=== PATIENT | female | born 1980 | race Caucasian/White ===

== ENCOUNTER → 2017-07-14 | Outpatient (CLI) | payer BC | END | disposition home or self-care (01) | LOC: C.LAB1850 16:51 | PROVIDERS: ATTEND Nurse Practitioner Family | DX: J02.9 Acute pharyngitis, unspecified (principal); R68.89 Other general symptoms and signs ==

== ENCOUNTER → 2017-08-07 | Outpatient (CLI) | payer BC | END | disposition home or self-care (01) | LOC: C.PAPS 10:09 | PROVIDERS: ATTEND Obstetrics & Gynecology | DX: Z01.419 Encounter for gynecological examination (general) (routine) without abnormal findings (principal) ==

== ENCOUNTER → 2017-11-13 | Outpatient (CLI) | payer BC, OTHER ==
[2017-11-13 16:37] LABS: BASO % 0.5 %; BASO ABS # 0.04 K/uL (0-0.2); EOS % 2.5 %; EOS ABS # 0.22 K/uL (0-0.5); HEMATOCRIT 38.8 % (37-47); HEMOGLOBIN 13.3 g/dL (12.0-16.0); IG# 0.02 K/uL (0.00-0.02); LYMPH % 37.5 %; LYMPH ABS # 3.26 K/uL (1.2-3.4); MEAN CORPUSCULAR HEMOGLOBIN 30.2 pg (25-34); MEAN CORPUSCULAR HGB CONC 34.3 g/dl (32-36); MEAN PLATELET VOLUME 9.9 fL (7.4-10.4); MONO ABS # 0.52 K/uL (0.11-0.59); NEUT % 53.3 %; NEUT ABS # 4.63 K/uL (1.4-6.5); PLATELET COUNT 336 K/uL (130-400); RED CELL DISTRIBUTION WIDTH CV 12.3 % (11.5-14.5); RED CELL DISTRIBUTION WIDTH SD 39.4 fL (36.4-46.3); WHITE BLOOD COUNT 8.69 K/uL (4.8-10.8)
[2017-11-13 17:20] LABS: FOLLICLE STIMULAT HORMONE 6.21 IU/L; LUTEINIZING HORMONE 12.44 IU/L; PROLACTIN 16.2 ng/mL
== END | disposition home or self-care (01) ==
LOC: C.LAB1850 15:58
PROVIDERS: ATTEND Nurse Practitioner Family
DX: L65.9 Nonscarring hair loss, unspecified (principal); N92.6 Irregular menstruation, unspecified

== ENCOUNTER 2019-05-02 08:36 | Inpatient (IN) ==
--- NOTE | 2019-05-02 09:19 | History & Physical Report ---
Date of Service May 02, 2019 Assessment & Plan (1) : Admit to L&D for labor, start IV, EFM/toco, labs. 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 Will want epidural at about 7 cm. I have discussed with her that she can get this whenever she desires. History of Present Illness Chief Complaint: contractions Primary Care Provider: HILARY Newman 38yo @ 39 5/7 presents with regular contractions every 5 minutes. No leaking of fluid. Has scant bloody show. + movement. complicated by advanced maternal age. Allergies Allergy/AdvReac Type Severity Reaction Status Date / Time No Known Allergies Allergy Unverified 04/28/19 10:42 Home Medications Home Medications Medication Instructions Recorded Confirmed Type vit-iron fum-folic ac 1 tab PO DAILY 04/28/19 05/02/19 History [ Vitamin] Patient History Medical History [place] teeth extracted No known health problems Surgical History No history of previous surgery Family History Mother Diabetes Grandmother (Paternal) Diabetes Social History Preferred Language: Pakistani Communication Ability: Effective [employer] Required: No Beliefs That Will Affect Care: None marital status: Current Living Situation: Spouse Other Information That Helps Us Care for You: No Feels Safe at Home: Yes Safety Concerns: Feels Safe At This Time Smoking Status: Never smoker Hx Alcohol Use: No Hx Substance Use: No Review of Systems All systems reviewed & are unremarkable except as noted in HPI & below Physical Exam Physical Exam: Gen: AAOx3 uncomfortable CV: RRR L: CTAB Abd: soft, gravid, NTTP Ext: no edema SVE 4-5/90/-1 FHT Cat 1 [place] Q 5 Results & Data Vital Signs (Past 12 Hours) Vital Signs Temp Pulse Resp BP 05/02/19 08:47 36.6 C 121 H 18 136/81 05/02/19 08:45 121 H 136/81
[2019-05-02] MEDS ORDERED: OXYTOCIN 30 UNITS/500 ML BAG IV PRN ×2 (09:33→19:16)
[2019-05-02 09:55] LABS: Hematocrit (blood only) 38.7 % (37-47); Hemoglobin 13.2 g/dL (12.0-16.0); Mean Corpuscular Volume 88.4 fL (80-100); Mean Platelet Volume 9.9 fL (7.4-10.4); Platelet Count 286 K/uL (130-400); RDW Coefficient of Variation 13.6 % (11.5-14.5); RDW Standard Deviation 44.4 fL (36.4-46.3); Red Blood Count 4.38 M/uL (4.2-5.4); White Blood Count 10.83 K/uL (4.8-10.8)
[2019-05-02 09:58] LABS: Mean Corpuscular Hgb Conc 34.1 g/dL (32-36)
[2019-05-02] MEDS: LACTATED RINGER'S 1,000 ML IV PRN ×3 (10:46→16:31)
[2019-05-02] MEDS ORDERED: BUPIVACAINE 0.25% 30 ML VIAL ONE ×2 (10:50→17:07)
[2019-05-02] MEDS ORDERED: ePHEDrine sulfate 50 MG/ML AMP ONE (10:51)
[2019-05-02] MEDS ORDERED: fentaNYL citrate 100 MCG/2 ML VIAL ONE ×2 (10:51→17:08)
[2019-05-02] MEDS ORDERED: fentaNYL 2MCG/ML ROPIV 1.25MG/ML 100 ML BAG EPI ONE (10:52)
--- NOTE | 2019-05-02 12:04 | Anesthesiology Consultation ---
Date of Service May 02, 2019 Assessment & Plan Chart Review Chart Review: Acceptable Risk for Surgery and Patient NOT seen in Pre Admission Testing Consults Requested none History Height/Weight Height: 5 ft 7 in Weight: 78.018 kg Allergies Allergy/AdvReac Type Severity Reaction Status Date / Time No Known Allergies Allergy Unverified 04/28/19 10:42 Medications Home Medications Medication Instructions Recorded Confirmed Last Taken vit-iron fum-folic ac 1 tab PO DAILY 04/28/19 05/02/19 05/02/19 06:45 [ Vitamin] Active Medications Generic Name Dose Route Start Last Admin Trade Name Freq PRN Reason Stop Dose Admin Lactated Ringer's 1,000 mls @ 125 mls/hr 05/02/19 09:33 05/02/19 11:41 Lr IV 05/04/19 09:32 999 mls/hr .Q8H PRN Administration L&D Protocol Protocol Past Medical History Medical History [place] teeth extracted No known health problems Past Family History Family History Mother Diabetes Grandmother (Paternal) Diabetes Past Surgical History Surgical History No history of previous surgery Social History Smoking Status: Never smoker Hx Alcohol Use: No Hx Substance Use: No Physical Exam Vital Signs Last Vital Signs Temp 37.1 C 05/02/19 11:03 Pulse 99 H 05/02/19 12:01 Resp 18 05/02/19 11:03 BP 131/76 05/02/19 12:01 Pulse Ox 100 05/02/19 12:01 Testing Laboratory Results 05/02/19 09:43
[2019-05-02] MEDS ORDERED: DiphenhydrAMINE HCL 50 MG/ML VIAL IV PRN (12:07)
[2019-05-02] MEDS ORDERED: fentaNYL 2MCG/ML ROPIV 1.25MG/ML 100 ML BAG EPI PRN (12:07)
[2019-05-02] MEDS ORDERED: ePHEDrine sulfate 50 MG/ML AMP IV PRN ×2 (12:07)
[2019-05-02] MEDS ORDERED: NALOXONE HCL 1 MG in SODIUM CHLORIDE 0.9% 1000ML 1,000 ML IV PRN (12:07)
[2019-05-02] MEDS ORDERED: ATROPINE SULFATE 0.1 MG/ML 10ML SYR IV PRN (12:07)
[2019-05-02] MEDS ORDERED: ONDANSETRON INJ 2 MG/ML 2 ML VIAL IV PRN (12:07)
[2019-05-02] MEDS ORDERED: NALBUPHINE HCL INJ 10 MG/ML AMP IV PRN (12:07)
[2019-05-02] MEDS ORDERED: NALOXONE HCL 0.4 MG/1 ML VIAL/CARP IV PRN (12:07)
--- NOTE | 2019-05-02 14:53 | Obstetrical Progress Note ---
Date of Service May 02, 2019 Subjective Feeling comfortable with epidural. FHT Cat 1 [place] Q 2-3 min SVE 8-9/100/0 AROM for thin-mec stained fluid. Continue to labor - anticipate . Results & Data Vital Signs (Past 12 Hours) Vital Signs Temp Pulse Resp BP Pulse Ox 05/02/19 14:49 112 H 134/69 05/02/19 14:46 114 H 100 05/02/19 14:41 110 H 100 05/02/19 14:36 116 H 99 05/02/19 14:34 116 H 122/64 05/02/19 14:31 108 H 100 05/02/19 14:26 112 H 100 05/02/19 14:21 111 H 99 05/02/19 14:19 110 H 113/59 L 05/02/19 14:16 109 H 98 05/02/19 14:11 109 H 100 05/02/19 14:06 114 H 100 05/02/19 14:05 109 H 111/66 05/02/19 14:01 103 H 100 05/02/19 13:56 104 H 100 05/02/19 13:51 115 H 100 05/02/19 13:49 105 H 111/63 05/02/19 13:46 106 H 99 05/02/19 13:41 101 H 100 05/02/19 13:36 107 H 100 05/02/19 13:35 104 H 116/67 05/02/19 13:31 106 H 100 05/02/19 13:26 107 H 100 05/02/19 13:21 100 H 100 05/02/19 13:19 98 H 111/59 L 05/02/19 13:16 102 H 100 05/02/19 13:11 99 H 100 05/02/19 13:06 100 H 100 05/02/19 13:05 100 H 119/54 L 05/02/19 13:01 101 H 100 05/02/19 12:56 110 H 100 05/02/19 12:51 98 H 100 05/02/19 12:49 97 H 132/70 05/02/19 12:46 100 H 100 05/02/19 12:41 98 H 100 05/02/19 12:36 100 H 100 05/02/19 12:32 100 H 127/76 05/02/19 12:31 99 H 100 08/01/19 12:27 97 H 132/77 05/02/19 12:26 100 H 100 05/02/19 12:23 97 H 18 131/79 05/02/19 12:21 98 H 100 05/02/19 12:17 100 H 129/74 05/02/19 12:16 101 H 100 05/02/19 12:13 98 H 133/75 05/02/19 12:12 111 H 90 05/02/19 12:11 108 H 96 05/02/19 12:08 101 H 128/76 05/02/19 12:06 96 H 100 05/02/19 12:01 99 H 18 131/76 100 05/02/19 11:58 105 H 127/71 05/02/19 11:56 106 H 18 132/73 100 05/02/19 11:54 106 H 125/68 05/02/19 11:53 111 H 18 129/73 05/02/19 11:51 103 H 100 05/02/19 11:50 111 H 129/72 05/02/19 11:48 112 H 18 126/74 05/02/19 11:46 113 H 126/72 100 05/02/19 11:43 111 H 18 136/81 05/02/19 11:41 111 H 100 05/02/19 11:36 114 H 100 05/02/19 11:31 117 H 100 05/02/19 11:26 114 H 100 05/02/19 11:21 109 H 100 05/02/19 11:16 108 H 100 05/02/19 11:11 115 H 100 05/02/19 11:03 37.1 C 108 H 18 132/77 05/02/19 08:47 36.6 C 121 H 18 136/81 05/02/19 08:45 121 H 136/81 PG Care Time/CCT Total # of Minutes Spent Total Time Spent with Patient: Total time spent is greater than 50% in coordination of care (as documented) at patient's floor/unit and/or counseling patient:
--- NOTE | 2019-05-02 21:49 | Delivery Summary ---
Vaginal Delivery Summary Date of Service May 02, 2019 Vaginal Delivery Summary Vaginal Delivery Summary: Pre-delivery diagnoses: 38yo @ 39 5/7, spontaneous labor Post-delivery diagnoses: same + 3rd degree perineal laceration Procedure: spontaneous vaginal delivery, repair of 3rd degree perineal laceration Surgeon: Tina Clemons DO Complications: none Findings: Viable female . Apgars: 8/9. Weight pending, please see nursery records. Estimated blood loss: 300ml Description of delivery: The patient progressed to complete with epidural anesthesia. She then began to push. She spontaneously vaginally delivered a viable female from the cephalic presentation. The head delivered in JAMAL position. No nuchal cord was noted. The anterior shoulder delivered, followed by the posterior shoulder, followed by the body. The baby was placed on mother's abdomen and a spontaneous cry was heard. Delayed cord clamping was employed, and the cord was doubly clamped and cut. Cord blood was obtained. The placenta was delivered spontaneously intact with a 3-vessel cord. The uterus and vagina were swept of clots and debris. IV pitocin was given. The uterus became firm. The cervix, vagina, and perineum were inspected and a 3rd degree perineal laceration was noted. Rectal examination revealed no laceration into the rectum. The anal sphincter muscle was partially lacerated, leaving the anterior(posterior) half of the muscle intact. The superior aspect of the anal sphincter muscle was brought together with 2 [id number] sutures using 3-0 chromic suture. The remaining 2nd degree perineal laceration was reapproximated with 3-0 vicryl in standard fashion in a running stitch. Rectal exam after repair revealed no sutures in the rectum. Excellent hemostasis was observed. The mother and baby are recovering in stable and good condition in the room. Sponge, needle, and instrument counts were correct x 2. Tina Clemons DO [facility] [place]
--- NOTE | 2019-05-02 22:36 | Anesthesia Procedure Note ---
Date of Service May 02, 2019 Anesthesia Post Epidural Note Vital Signs Vital Signs: Temp Pulse Resp BP Pulse Ox 37.0 C 126 H 18 125/58 L 100 05/02/19 18:38 05/02/19 22:33 05/02/19 18:38 05/02/19 22:33 05/02/19 20:59 Notes Mental Status: alert / awake / arousable Patient Amnestic to Procedure: Yes Nausea / Vomiting: adequately controlled Pain: adequately controlled Airway Patency, RR, SpO2: stable & adequate BP & HR: stable & adequate Hydration State: stable & adequate Neuraxial Anesthesia: was administered and sensory block resolved Anesthetic Complications: no major complications apparent and Pt Satisfied with anesthetic care Epidural: Removed without complications and With tip intact
[2019-05-03] MEDS ORDERED: BISACODYL 10 MG SUPP PR PRN (00:09)
[2019-05-03] MEDS ORDERED: SUPERCREAM 0.870% 15 GM JAR EXT PRN (00:09)
[2019-05-03] MEDS ORDERED: ACETAMINOPHEN 325 MG TAB PO PRN (00:09)
[2019-05-03] MEDS ORDERED: HYDROCORTISONE ACETATE 25 MG SUPP PR PRN (00:09)
[2019-05-03] MEDS ORDERED: OXYTOCIN 30 UNITS/500 ML BAG IV PRN (00:09)
[2019-05-03] MEDS ORDERED: DIPHTHERIA/TETANUS/PERTUSSIS 0.5 ML SYR/VIAL IM ONE (00:09)
[2019-05-03] MEDS: IBUPROFEN 600 MG TAB PO PRN ×3 (01:14→17:48)
[2019-05-03] MEDS: BENZOCAINE 20% AER SPR 82.5 GM CAN EXT PRN (01:15)
[2019-05-03 07:17] LABS: Hematocrit (blood only) 35.2 % (37-47); Hemoglobin 11.7 g/dL (12.0-16.0); Mean Corpuscular Hgb Conc 33.2 g/dL (32-36); Mean Corpuscular Volume 88.4 fL (80-100); Mean Platelet Volume 10.1 fL (7.4-10.4); Platelet Count 266 K/uL (130-400); RDW Coefficient of Variation 13.7 % (11.5-14.5); RDW Standard Deviation 44.1 fL (36.4-46.3); Red Blood Count 3.98 M/uL (4.2-5.4); White Blood Count 18.04 K/uL (4.8-10.8)
--- NOTE | 2019-05-03 07:52 | Obstetrical Progress Note ---
Date of Service <Latasha Camejo MD - Last Filed: 05/03/19 07:52> May 03, 2019 Assessment & Plan <Latasha Camejo MD - Last Filed: 05/03/19 07:52> (1) : (2) Delivery normal: Subjective <Latasha Camejo MD - Last Filed: 05/03/19 07:52> Ambulation: ambulating normally Voiding: no voiding problems Passing Gas:: Yes Diet Tolerance:: regular diet Lochia:: Small Current Pain Level(1-10): 1 Constitutional: no fever, no chills, no fatigue and no weakness Respiratory: no cough and no chest congestion Cardiovascular: + edema; no chest pain, no dyspnea on exertion and no calf pain Breast: no breast pain Gastrointestinal: no abdominal pain, no nausea, no vomiting, no cramping, no constipation and no diarrhea/loose stools Genitourinary (female): + dysuria Physical Exam <Latasha Camejo MD - Last Filed: 05/03/19 07:52> Sitting comfortably in bed, no acute distress Respiratory normal respiratory effort, lungs clear to auscultation Auscultation: no crackles, no rales, no rhonchi and no wheezes Cardiovascular RRR, no murmur, no edema Gastrointestinal (Abdomen) Inspection/Auscultation: + abdomen distended and normal bowel sounds Percussion/Palpation: + abdomen tender and abdomen soft Genitourinary Speculum/Bimanual Exam: + uterus enlarged (palpable below umbilicus) Results & Data <Latasha Camejo MD - Last Filed: 05/03/19 07:52> Vital Signs (Past 12 Hours) Vital Signs Temp Pulse Pulse Resp BP BP Pulse Ox 05/03/19 03:34 37.0 C 100 H 18 117/76 97 05/02/19 23:58 37.5 C 105 H 18 122/81 97 05/02/19 23:33 106 H 119/70 05/02/19 23:19 121 H 119/71 05/02/19 23:03 103 H 125/71 05/02/19 22:48 104 H 122/61 05/02/19 22:33 126 H 125/58 L 05/02/19 22:19 104 H 117/58 L 05/02/19 22:03 102 H 125/72 05/02/19 21:48 111 H 121/79 05/02/19 21:33 105 H 116/72 05/02/19 21:19 103 H 118/80 05/02/19 21:04 112 H 122/71 05/02/19 20:59 113 H 100 05/02/19 20:54 124 H 98 05/02/19 20:52 127 H 88 L 05/02/19 20:50 121 H 122/68 05/02/19 20:49 120 H 100 05/02/19 20:43 122 H 99 05/02/19 20:38 119 H 100 05/02/19 20:34 116 H 122/60 05/02/19 20:33 123 H 84 L 05/02/19 20:31 115 H 84 L 05/02/19 20:28 133 H 82 L 05/02/19 20:25 115 H 76 L 05/02/19 20:23 120 H 100 05/02/19 20:19 118 H 138/62 05/02/19 20:18 116 H 88 L 05/02/19 20:13 114 H 99 05/02/19 20:08 119 H 86 L 05/02/19 20:07 119 H 100 05/02/19 20:04 116 H 123/60 05/02/19 20:02 112 H 100 05/02/19 19:57 127 H 97 05/02/19 19:52 114 H 99 05/02/19 19:49 112 H 125/63 <Tina Clemons DO - Last Filed: 05/03/19 08:00> Co-Signing Physician Notes Resident Physician Supervision Note: I interviewed and examined the patient. Discussed with Dr. Camejo and agree with findings and plan as documented in the note. Any exceptions or clarifications are listed here: PPD#1 doing well. Continue routine care. Documented By: Tina Clemons DO
[2019-05-03] MEDS: DOCUSATE SODIUM 100 MG CAP PO SCH ×2 (07:54→20:11)
[2019-05-03] MEDS: PRENATAL VITAMIN 1 TAB PO SCH (07:54)
[2019-05-03] MEDS: OXYCODONE/ACETAMINOPHEN 5mg/325mg TAB PO PRN ×3 (08:11→17:47)
[2019-05-03] MEDS ORDERED: NON-FORMULARY MEDICATION (Prenatal Vit-Iron Fum-Folic Ac [Prenatal Vitamin] 1 TAB) PO SCH (09:00)
[2019-05-03] MEDS ORDERED: BISACODYL 5 MG TABEC PO SCH (20:00)
[2019-05-04] MEDS: IBUPROFEN 600 MG TAB PO PRN ×3 (02:24→14:10)
[2019-05-04 06:37] LABS: Hematocrit (blood only) 33.3 % (37-47)
[2019-05-04] MEDS: DOCUSATE SODIUM 100 MG CAP PO SCH (08:14)
[2019-05-04] MEDS: PRENATAL VITAMIN 1 TAB PO SCH (08:14)
--- NOTE | 2019-05-04 08:32 | Obstetrical Progress Note ---
Date of Service <Latasha Camejo MD - Last Filed: 05/04/19 09:14> May 04, 2019 Assessment & Plan <Latasha Camejo MD - Last Filed: 05/04/19 09:14> (1) : (2) Delivery normal: Subjective <Latasha Camejo MD - Last Filed: 05/04/19 09:14> Ambulation: ambulating normally Voiding: no voiding problems Passing Gas:: Yes Diet Tolerance:: regular diet Lochia:: Moderate Feeding Type:: breast feeding Current Pain Level(1-10): 0 Constitutional: no fever and no chills Respiratory: no cough and no dyspnea Cardiovascular: no chest pain, no dyspnea on exertion, no edema and no calf pain Breast: no breast pain Gastrointestinal: + cramping; no abdominal pain, no nausea, no vomiting, no constipation and no diarrhea/loose stools Genitourinary (female): no dysuria Neurologic: no headache(s) Physical Exam <Latasha Camejo MD - Last Filed: 05/04/19 09:14> Constitutional well developed and well nourished; no acute distress Respiratory normal respiratory effort, lungs clear to auscultation Auscultation: no crackles, no rales, no rhonchi and no wheezes Cardiovascular RRR, no murmur, no edema Gastrointestinal (Abdomen) Inspection/Auscultation: + abdomen distended and normal bowel sounds Percussion/Palpation: + abdomen tender and abdomen soft Genitourinary Speculum/Bimanual Exam: + uterus enlarged (palpable below umbilicus) Results & Data <Latasha Camejo MD - Last Filed: 05/04/19 09:14> Vital Signs (Past 12 Hours) Vital Signs Temp Pulse Resp BP 05/03/19 23:55 36.7 C 91 H 18 108/72 <Judy Brito MD, FACOG - Last Filed: 05/04/19 09:14> Co-Signing Physician Notes Resident Physician Supervision Note: I was present with Dr. Camejo during the history and exam. I discussed the case with the resident and agree with the findings and plan as documented in the note. Any exceptions or clarifications are listed here: Patient will be discharged today. follow up in 6 weeks. Documented By: Judy Brito MD, FACOG
[2019-05-04] MEDS: BENZOCAINE 20% AER SPR 82.5 GM CAN EXT PRN (11:05)
== END 2019-05-04 18:45 | disposition home or self-care (01) | DRG 768 ==
LOC: OPB 08:36 → 4S1 08:37 → 4S2 23:58